=== PATIENT | male | born 1975 ===

== ENCOUNTER 2022-10-08 13:42 | Emergency (ER) | payer SELFPAY ==
[~2022-10-08] VITALS: Ht 165.1 cm; Wt 63.5 kg
--- NOTE | 2022-10-08 16:23 | ED General ---
General Chief Complaint: General Problems/Pain Stated Complaint: ELEV BLOOD PRESSURE/HIGH BLOOD SUGAR Nursing Triage Note: PT AMB TO TRIAGE W C/O HTN AND HIGH BLOOD SUGAR TODAY WHILE AT A SCHEDULED CHECK-UP AT [facility]. PT UNSURE WHO PROVIDER IS THAT EVALUATED HIM, UNSURE WHAT BP OR BLOOD SUGAR WAS AT [facility]. PT C/O CARMICHAEL. PT A&OX4. History of Present Illness Date Seen by Provider: Oct 08, 2022 Time Seen by Provider: 15:50 Initial Comments Patient is a 47-year-old male who presents to the emergency room today at the direction of [facility]. Patient was sent over reportedly for elevated blood pressure and blood glucose. He has a history of hypertension and diabetes. He ran out of his blood pressure medicine this morning. He states he has been out of his diabetes medications for about 3 months. He has occasional bouts of abdominal pain that are not precipitated by any particular food or activity. He is a little constipated at times he states his last bowel movement was 2 days ago. He currently has a headache that he rates at about a "5". No vision changes or speech difficulty. No weakness numbness or tingling. He denies recent illness such as fevers, chills, nausea or vomiting. He does complain of some swelling in his feet occasionally. He tells me that he knows that he has a history of some kidney problems but has not had any follow-up since he moved to [place] with his daughter. It is very unclear why the patient lives in [place] with his daughter and finds himself at [facility] in [facility] He cannot really elaborate on this. He states the medication list that was provided to us has all of his medications listed on it and he is out of every one of them. Reportedly [facility] did do some bedside labs, his serum creatinine was 3. The patient has no increased work of breathing or physical signs of volume overload or other symptoms. Likely this is chronic due to his longstanding diabetes and hypertension. He is making urine. Use of video lamps tester and inspector to facilitate History and physical exam Associated Systoms: Headaches Allergies and Home Medications Allergies Coded Allergies: No Known Drug Allergies (Unverified , 10/08/22) Patient Home Medication List Home Medication List Reviewed: Yes Review of Systems Review of Systems Constitutional: see HPI EENTM: no symptoms reported Respiratory: no symptoms reported Cardiovascular: no symptoms reported Gastrointestinal: abdominal pain, constipation, other (Occasional abdominal discomfort) Genitourinary: no symptoms reported Musculoskeletal: no symptoms reported Skin: no symptoms reported Psychiatric/Neurological: Headache Past Yxopwoa-Tlrcdy-Zskzuu Hx Patient Social History Tobacco Use?: No Use of E-Cig and/or Vaping dev: No Substance use?: No Alcohol Use?: No Immunizations Up To Date Influenza Vaccine Up-to-Date: No; Not Current First/Initial COVID19 Vaccinat: 2020 Second COVID19 Vaccination Aníbal: NONE Third COVID19 Vaccination Date: NONE COVID19 Vaccine Veterinary Surgeon: UNK X1 Physical Exam Vital Signs Vital Signs - First Documented 10/08/22 13:57 Temp 36.6 Pulse 67 Resp 20 B/P (MAP) 164/84 (110) Pulse Ox 100 O2 Delivery Room Air Capillary Refill : Less Than 3 Seconds Height, Weight, BMI Height: '" Weight: lbs. oz. kg; 23.00 BMI Method: General Appearance: No Apparent Distress, WD/WN, Thin Eyes: Bilateral Eye Normal Inspection, Bilateral Eye PERRL, Bilateral Eye EOMI HEENT: PERRL/EOMI Neck: Normal Inspection Respiratory: Lungs Clear, Normal Breath Sounds, No Accessory Muscle Use, No Respiratory Distress Cardiovascular: Regular Rate, Rhythm, Normal Peripheral Pulses Gastrointestinal: Normal Bowel Sounds, Non Tender, Soft; No Distended, No Guarding, No Tenderness Extremity: Normal Inspection, Normal Range of Motion, Non Tender, No Calf Tenderness Neurologic/Psychiatric: Alert, Oriented x3, No Motor/Sensory Deficits, Normal Mood/Affect, transmission design engineer II-XII Norm as Tested Skin: Normal Color, Warm/Dry Progress/Results/Core Measures Suspected Sepsis SIRS Temperature: Pulse: 67 Respiratory Rate: 20 Blood Pressure 164 /84 Mean: 110 Results/Orders My Orders Orders - ALLAN BELTRE MD Ed Iv/Invasive Line Start (10/08/22 15:51) Cbc With Automated Diff (10/08/22 15:51) Comprehensive Metabolic Panel (10/08/22 15:51) Vital Signs/I&O 10/08/22 13:57 Temp 36.6 Pulse 67 Resp 20 B/P (MAP) 164/84 (110) Pulse Ox 100 O2 Delivery Room Air Capillary Refill : Less Than 3 Seconds Blood Pressure Mean: 110 Departure Impression Primary Impression: Headache Qualified Codes: R51.9 - Headache, unspecified Additional Impressions: History of diabetes mellitus History of high blood pressure Disposition: 01 HOME, SELF-CARE Condition: Stable Departure-Patient Inst. Decision time for Depature: 16:20 Referrals: [facility] (PCP/Family) Primary Care Physician Patient Instructions: Headache, Adult ED Add. Discharge Instructions: I have refilled prescriptions for your insulin and blood pressure and cholesterol medicines You need to have follow-up with [facility] or a clinic in [place] for further evaluation of your chronic kidney disease which is related to diabetes and high blood pressure. If you have chest pain, shortness of breath, worsening swelling you need to come back to the emergency department. Take a baby aspirin daily. Tylenol 500mg, 2 tablets every 6 hours as needed for headache. He vuelto a surtir recetas para bella medicamentos para la insulina, la presin arterial y el colesterol Debe tener un seguimiento con la christine de la comunidad o ismael clnica en [place] para ismael evaluacin adicional de berumen enfermedad renal crnica relacionada con la diabetes y la presin arterial efrain. Si tiene dolor en el pecho, dificultad para respirar, empeoramiento de la hinchazn, debe regresar al departamento de emergencias. [place] ismael aspirina para bebs diariamente. Tylenol 500mg, 2 comprimidos cada 6 horas segn sea necesario para el dolor de leslie. Scripts Lisinopril (Lisinopril) 10 Mg Tablet 10 MG PO DAILY for 14 Days, #4 TAB Prov: ALLAN BELTRE MD 10/08/22 Insulin NPH Hum/Reg Insulin Hm (Novolin 70-30 Flexpen) 100 Unit/Ml (70-30) Insuln.pen 15 UNIT SQ DAILY for 14 Days, #1 EA Prov: ALLAN BELTRE MD 10/08/22 Insulin NPH Hum/Reg Insulin Hm (Novolin 70-30 Flexpen) 100 Unit/Ml (70-30) Insuln.pen 10 UNIT SQ HS for 14 Days, #1 EA Prov: ALLAN BELTRE MD 10/08/22 Dapagliflozin Propanediol (Farxiga) 5 Mg Tablet 5 MG PO DAILY for 14 Days, #14 TAB Prov: ALLAN BELTRE MD 10/08/22 Carvedilol (Carvedilol) 12.5 Mg Tablet 12.5 MG PO BID for 15 Days, #30 TAB Prov: ALLAN BELTRE MD 10/08/22 Atorvastatin Calcium (Atorvastatin Calcium) 40 Mg Tablet 40 MG PO HS for 14 Days, #14 TAB Prov: ALLAN BELTRE MD 10/08/22 Copy Copies To 1: ERIKA IZAGUIRRE KATHRYN M MD Oct 08, 2022 16:23
[2022-10-08] MEDS ORDERED: ATOR40TA70 PO (16:26)
[2022-10-08] MEDS ORDERED: CARV12.53 PO (16:26)
[2022-10-08] MEDS ORDERED: LISI10TA25 PO (16:26)
[2022-10-08] MEDS ORDERED: DAPA5TAB PO (16:26)
[2022-10-08] MEDS ORDERED: INSU100I43 SQ ×2 (16:26)
[2022-10-08] MEDS ORDERED: ACETAMINOPHEN 500 MG TAB (TYLENOL) PO ONE (16:30)
[2022-10-08 17:03] VITALS: BP 126/74
== END 2022-10-08 17:03 | disposition home or self-care (01) ==
LOC: ER 13:46
DX: R51.9 Headache, unspecified (principal); E11.9 Type 2 diabetes mellitus without complications; I10 Essential (primary) hypertension; Z28.311 Partially vaccinated for COVID-19
CPT/HCPCS: 99284

== ENCOUNTER 2022-11-06 11:24 | Emergency (ER) | payer SELFPAY ==
[~2022-11-06] VITALS: Ht 165 cm; Wt 63.3 kg
[~2022-11-06 11:24] MED LIST: ATOR40TA70 PO; CARV12.53 PO; DAPA5TAB PO; INSU100I43 SQ; LISI10TA25 PO
[2022-11-06 12:03] LABS: BASOPHILS % (AUTO) 1 % (0-10); EOSINOPHILS # (AUTO) 0.1 10^3/uL (0.0-0.3); EOSINOPHILS % (AUTO) 2 % (0-10); HEMATOCRIT 25 % (40-54); HEMOGLOBIN 7.9 g/dL (13.3-17.7); LYMPHOCYTES % (AUTO) 12 % (12-44); MEAN CORPUSCULAR HEMOGLOBIN 29 pg (25-34); MEAN CORPUSCULAR HGB CONC 32 g/dL (32-36); MEAN CORPUSCULAR VOLUME 90 fL (80-99); MEAN PLATELET VOLUME 9.9 fL (9.0-12.2); MONOCYTES # (AUTO) 0.5 10^3/uL (0.0-1.0); MONOCYTES % (AUTO) 6 % (0-12); NEUTROPHILS # (AUTO) 6.5 10^3/uL (1.8-7.8); NEUTROPHILS % (AUTO) 80 % (42-75); PLATELET COUNT 369 10^3/uL (130-400); WHITE BLOOD COUNT 8.2 10^3/uL (4.3-11.0)
--- NOTE | 2022-11-06 12:06 | ED General ---
General Chief Complaint: Dizziness/Syncope Stated Complaint: HIGH BLOOD PRESSURE, DIZZINESS Nursing Triage Note: pt has had dizziness for 5 months, lost vision in his right eye about 3 months ago. states he is here today because his blood pressure has been high and he has been dizzy History of Present Illness Date Seen by Provider: Nov 06, 2022 Time Seen by Provider: 11:32 Initial Comments 47 year old Albanian speaking male presents for uncontrolled HTN and DM for many years. He was evaluated for similar problems in this ED 1 month ago, was given a 2 week supply of medications. Medications were initiated, patient is taking all meds except the Farxiga, due to cost. He has no vision in the right eye for approx 6 months and intermittent blurred or decreased vision in the left eye. He is now staying with his cousin, who is present and assisting with his medical care. Marina RN present and providing translation. Patient denies chest pain, shortness of breath, or any acute findings at this time. No N/V/D today but occasionally has nausea and constipation. He is deciding between health care at [facility] in [place] or [facility] in [place]. He saw an elastic attacher zigzag 3 months ago but didn't follow up due to costs. Checked his B/P at home, 200/100 this am. Took his home medications. Glucose ranges 100-200. History of anemia. Timing/Duration: Changing Over Time, Constant Severity: Mild Associated Systoms: No Chest Pain, No Cough, No Fever/Chills, No Headaches, No Loss of Appetite, No Malaise, No Nausea/Vomiting, No Syncope, No Weakness Allergies and Home Medications Allergies Coded Allergies: No Known Drug Allergies (Unverified , 10/08/22) Patient Home Medication List Home Medication List Reviewed: Yes Atorvastatin Calcium (Atorvastatin Calcium) 40 Mg Tablet, 40 MG PO HS Prescribed by: ALLAN BELTRE on 10/08/22 162 Atorvastatin Calcium (Atorvastatin Calcium) 40 Mg Tablet, 40 MG PO DAILY Prescribed by: MELONIE ROBERTSON on 11/06/22 1332 Carvedilol (Carvedilol) 12.5 Mg Tablet, 12.5 MG PO BID Prescribed by: ALLAN BELTRE on 10/08/22 162 Carvedilol (Carvedilol) 12.5 Mg Tablet, 12.5 MG PO BID Prescribed by: MELONIE ROBERTSON on 11/06/22 1332 Dapagliflozin Propanediol (Farxiga) 5 Mg Tablet, 5 MG PO DAILY Prescribed by: ALLAN BELTRE on 10/08/22 1626 Insulin NPH Hum/Reg Insulin Hm (Novolin 70-30 Flexpen) 100 Unit/Ml (70-30) Insuln.pen, 10 UNIT SQ HS Prescribed by: ALLAN BELTRE on 10/08/22 1626 Insulin NPH Hum/Reg Insulin Hm (Novolin 70-30 Flexpen) 100 Unit/Ml (70-30) Insuln.pen, 15 UNIT SQ DAILY Prescribed by: ALLAN BELTRE on 10/08/22 1626 Insulin NPH Hum/Reg Insulin Hm (Novolin 70-30 Flexpen) 100 Unit/Ml (70-30) Insuln.pen, 10 UNIT SQ HS Prescribed by: MELONIE ROBERTSON on 11/06/22 1332 Lisinopril (Lisinopril) 10 Mg Tablet, 10 MG PO DAILY Prescribed by: ALLAN BELTRE on 10/08/22 162 Lisinopril/Hydrochlorothiazide (Lisinopril-Hctz 10-12.5 mg Tab) 10 Mg-12.5 Mg Tablet, 1 EACH PO DAILY Prescribed by: MELONIE ROBERTSON on 11/06/22 1332 Review of Systems Review of Systems Constitutional: no symptoms reported, see HPI EENTM: see HPI Respiratory: no symptoms reported, see HPI Cardiovascular: see HPI; No chest pain; edema (chronic, worse at night, not on diuretic) Gastrointestinal: no symptoms reported, see HPI All Other Systems Reviewed Negative Unless Noted: Yes Past Tbehelh-Ljgjvq-Ldnuug Hx Patient Social History Tobacco Use?: No Substance use?: No Alcohol Use?: No Immunizations Up To Date First/Initial COVID19 Vaccinat: 2020 Second COVID19 Vaccination Aníbal: NONE Third COVID19 Vaccination Date: NONE Family Medical History Reviewed Nursing Family Hx Physical Exam Vital Signs Vital Signs - First Documented 11/06/22 11/06/22 11:31 14:05 Temp 34.7 Pulse 81 Resp 16 B/P (MAP) 185/95 (125) Pulse Ox 100 O2 Delivery Room Air Capillary Refill : Less Than 3 Seconds Height, Weight, BMI Height: '" Weight: lbs. oz. kg; 23.00 BMI Method: General Appearance: No Apparent Distress, WD/WN Eyes: Bilateral Eye PERRL, Bilateral Eye EOMI HEENT: PERRL/EOMI, TMs Normal, Normal ENT Inspection, Pharynx Normal Neck: Full Range of Motion, Normal Inspection, Non Tender, Supple Respiratory: Chest Non Tender, Lungs Clear, Normal Breath Sounds Cardiovascular: Regular Rate, Rhythm, No Murmur, Normal Peripheral Pulses Gastrointestinal: Normal Bowel Sounds, Non Tender, Soft Extremity: Normal Capillary Refill, Normal Inspection, Normal Range of Motion, Non Tender, Pedal Edema (2+ pitting) Neurologic/Psychiatric: Alert, Oriented x3, No Motor/Sensory Deficits, Normal Mood/Affect Skin: Normal Color, Warm/Dry Progress/Results/Core Measures Suspected Sepsis SIRS Temperature: Pulse: 81 Respiratory Rate: 16 Laboratory Tests 11/06/22 11:55: White Blood Count 8.2 Blood Pressure 185 /95 Mean: 125 Laboratory Tests 11/06/22 11:55: Creatinine 5.47H, Platelet Count 369, Total Bilirubin 0.2 Results/Orders Lab Results Laboratory Tests Test 11/06/22 11:36 11/06/22 11:55 11/06/22 12:21 Range/Units Glucometer 206 H 70-110 MG/DL White Blood Count 8.2 4.3-11.0 10^3/uL Red Blood Count 2.77 L 4.30-5.52 10^6/uL Hemoglobin 7.9 L 13.3-17.7 g/dL Hematocrit 25 L 40-54 % Mean Corpuscular Volume 90 80-99 fL Mean Corpuscular Hemoglobin 29 25-34 pg Mean Corpuscular Hemoglobin Concent 32 32-36 g/dL Red Cell Distribution Width 16.1 H 10.0-14.5 % Platelet Count 369 130-400 10^3/uL Mean Platelet Volume 9.9 9.0-12.2 fL Immature Granulocyte % (Auto) 0 % Neutrophils (%) (Auto) 80 H 42-75 % Lymphocytes (%) (Auto) 12 12-44 % Monocytes (%) (Auto) 6 0-12 % Eosinophils (%) (Auto) 2 0-10 % Basophils (%) (Auto) 1 0-10 % Neutrophils # (Auto) 6.5 1.8-7.8 10^3/uL Lymphocytes # (Auto) 1.0 1.0-4.0 10^3/uL Monocytes # (Auto) 0.5 0.0-1.0 10^3/uL Eosinophils # (Auto) 0.1 0.0-0.3 10^3/uL Basophils # (Auto) 0.0 0.0-0.1 10^3/uL Immature Granulocyte # (Auto) 0.0 0.0-0.1 10^3/uL Sodium Level 141 135-145 MMOL/L Potassium Level 6.3 H 3.6-5.0 MMOL/L Chloride Level 117 H 98-107 MMOL/L Carbon Dioxide Level 14 L 21-32 MMOL/L Anion Gap 10 5-14 MMOL/L Blood Urea Nitrogen 92 H 7-18 MG/DL Creatinine 5.47 H 0.60-1.30 MG/DL Estimat Glomerular Filtration Rate 12 BUN/Creatinine Ratio 17 Glucose Level 219 H 70-105 MG/DL Calcium Level 8.6 8.5-10.1 MG/DL Corrected Calcium 9.9 8.5-10.1 MG/DL Total Bilirubin 0.2 0.1-1.0 MG/DL Aspartate Amino Transf (AST/SGOT) 21 5-34 U/L Alanine Aminotransferase (ALT/SGPT) 16 0-55 U/L Alkaline Phosphatase 84 40-136 U/L B-Type Natriuretic Peptide 482.1 H <100.0 PG/ML Total Protein 6.2 L 6.4-8.2 GM/DL Albumin 2.4 L 3.2-4.5 GM/DL Urine Color YELLOW Urine Clarity CLEAR Urine pH 6.0 5-9 Urine Specific Randolph 1.025 H 1.016-1.022 Urine Protein 3+ H NEGATIVE Urine Glucose (UA) 2+ H NEGATIVE Urine Ketones NEGATIVE NEGATIVE Urine Nitrite NEGATIVE NEGATIVE Urine Bilirubin NEGATIVE NEGATIVE Urine Urobilinogen 0.2 < = 1.0 MG/DL Urine Leukocyte Esterase NEGATIVE NEGATIVE Urine RBC (Auto) 2+ H NEGATIVE Urine RBC 2-5 H /HPF Urine WBC RARE /HPF Urine Squamous Epithelial Cells RARE /HPF Urine Crystals PRESENT H /LPF Urine Amorphous Sediment FEW NEYDA URATES H /LPF Urine Bacteria NEGATIVE /HPF Urine Casts PRESENT /LPF Urine Coarse Granular Casts 5-10 H /LPF Urine Mucus NEGATIVE /LPF Urine Culture Indicated NO My Orders Orders - MELONIE ROBERTSON LOGISTICS TECH Bnp Jakob (11/06/22 11:42) Cbc With Automated Diff (11/06/22 11:42) Comprehensive Metabolic Panel (11/06/22 11:42) Ua Culture If Indicated (11/06/22 11:42) Accucheck Stat ONCE (11/06/22 11:44) Furosemide Tablet (Lasix Tablet) (11/06/22 12:24) Hydralazine Tablet (Apresoline Tablet) (11/06/22 12:24) Vital Signs/I&O 11/06/22 11/06/22 11:31 14:05 Temp 34.7 36.5 Pulse 81 75 Resp 16 18 B/P (MAP) 185/95 (125) 179/89 Pulse Ox 100 98 O2 Delivery Room Air Capillary Refill : Less Than 3 Seconds Blood Pressure Mean: 125 Point of Care Testing Finger Stick Blood Glucose: 206 Blood Glucose Action Taken: PROVIDER NOTIFIED Progress Note : Time: 11:32 Progress Note Patient assessed, will obtain labs, medication to assist with blood pressure and make arrangements for outpatient care for vision and management of chronic conditions. 1145 Lasix 60 mg po and Hydralazine 10 mg po for b/p and edema. 1230 BP 160/85. reviewed labs and medications with patient, unfortunately these are the first labs for the patient and I have no baseline to compare. Stressed importance to establish care and follow up with a PCP. His last medications were prescribed for 2 weeks and going on/off medication is hurting his eyes, kidneys and heart. His cousin is concerned and assures he will get him into a PCP. Medications prescribed for 10 days. Discharge instructions and return precautions reviewed. All questions answered. Departure Impression Primary Impression: History of diabetes mellitus Additional Impressions: History of high blood pressure Chronic kidney disease (CKD) Qualified Codes: N18.9 - Chronic kidney disease, unspecified Anemia Qualified Codes: D64.9 - Anemia, unspecified Disposition: 01 HOME, SELF-CARE Condition: Critical Departure-Patient Inst. Decision time for Depature: 12:30 Referrals: [facility] [place] (PCP/Family) Primary Care Physician Patient Instructions: Anemia Caused by Low Iron, Adult (DC), Chronic Kidney Disease (DC), Diabetes Type 1, Adult (DC), Diabetic Retinopathy, High Blood Pressure (DC) Add. Discharge Instructions: You must establish care with a medical provider to manage your health conditions. You have serious health problems related to your blood pressure and diabetes, that is affecting your vision. Take medications, as prescribed. Check your blood sugar every morning, before meals and at bedtime. Document in a journal and take to your appt. Take Aspirin 81 mg, once daily. Increase water in your diet. Return to Emergency Dept for chest pain, altered mental status, shortness of breath or other acute problems. All discharge instructions reviewed with patient and/or family. Voiced understanding. Scripts Insulin NPH Hum/Reg Insulin Hm (Novolin 70-30 Flexpen) 100 Unit/Ml (70-30) Insuln.pen 10 UNIT SQ HS, #1 EA 0 Refills Prov: MELONIE ROBERTSON 11/06/22 Lisinopril/Hydrochlorothiazide (Lisinopril-Hctz 10-12.5 mg Tab) 10 Mg-12.5 Mg Tablet 1 EACH PO DAILY, #20 TAB 0 Refills Prov: MELONIE ROBERTSON 11/06/22 Carvedilol (Carvedilol) 12.5 Mg Tablet 12.5 MG PO BID, #40 TAB 0 Refills Prov: MELONIE ROBERTSON 11/06/22 Atorvastatin Calcium (Atorvastatin Calcium) 40 Mg Tablet 40 MG PO DAILY, #20 TAB 0 Refills Prov: MELONIE ROBERTSON 11/06/22 MELONIE ROBERTSON Nov 06, 2022 12:06
[2022-11-06 12:20] LABS: ALBUMIN 2.4 GM/DL (3.2-4.5); POTASSIUM 6.3 MMOL/L (3.6-5.0)
[2022-11-06 12:21] LABS: CALCIUM 8.6 MG/DL (8.5-10.1)
[2022-11-06 12:23] LABS: TOTAL PROTEIN 6.2 GM/DL (6.4-8.2)
[2022-11-06 12:24] LABS: BILIRUBIN,TOTAL 0.2 MG/DL (0.1-1.0)
[2022-11-06] MEDS ORDERED: FUROSEMIDE 20 MG (LASIX) TAB PO STA (12:24)
[2022-11-06 12:26] LABS: CREATININE SERUM 5.47 MG/DL (0.60-1.30)
[2022-11-06 12:30] LABS: BILIRUBIN,URINE NEGATIVE (NEGATIVE); CLARITY,URINE CLEAR; COLOR,URINE YELLOW; GLUCOSE, URINE (UA) 2+ (NEGATIVE); KETONES,URINE NEGATIVE (NEGATIVE); LEUKOCYTE ESTERASE ,URINE NEGATIVE (NEGATIVE); NITRITE,URINE NEGATIVE (NEGATIVE); PROTEIN,URINE 3+ (NEGATIVE)
[2022-11-06 12:40] LABS: AMORPHOUS SEDIMENT,UR FEW AMOR URATES /LPF; BACTERIA,URINE NEGATIVE /HPF; SQUAMOUS EPITHELIAL CELL,UR RARE /HPF; WBC,URINE RARE /HPF
[2022-11-06] MEDS ORDERED: INSU100I43 SQ (13:32)
[2022-11-06] MEDS ORDERED: CARV12.53 PO (13:32)
[2022-11-06] MEDS ORDERED: LISI1TAB44 PO (13:32)
[2022-11-06] MEDS ORDERED: ATOR40TA70 PO (13:32)
[2022-11-06 14:05] VITALS: BP 179/89
== END 2022-11-06 14:05 | disposition home or self-care (01) ==
LOC: EDUNIT# 11:24 → ER 11:26
DX: I12.9 Hypertensive chronic kidney disease with stage 1 through stage 4 chronic kidney disease, or unspecified chronic kidney disease (principal); E11.22 Type 2 diabetes mellitus with diabetic chronic kidney disease; N18.9 Chronic kidney disease, unspecified; D63.1 Anemia in chronic kidney disease; Z28.311 Partially vaccinated for COVID-19
CPT/HCPCS: 36415; 80053; 81000; 82947; 83880; 85025